=== PATIENT | female | born 1940 | race Caucasian/White ===

== ENCOUNTER 2021-03-22 15:53 | Emergency (ER) | payer MEDICARE ==
[~2021-03-22 15:53] MED LIST: ASPIR-TRIN325 MG PO; BENICAR HCT 201 EACH PO; CELEXA20 MG PO; ISOSORBIDE MON120 MG PO; LOSARTAN-HCTZ1 EACH PO; PLAVIX 75 MG TA75 MG PO; RANEXA500 MG PO; REMERON15 MG PO; SYNTHROID137 MCG PO; TOPROL XL 50 MG50 MG PO
== END 2021-03-22 16:50 | disposition left against medical advice (07) ==
LOC: ER1 15:53
DX: Z53.21 Procedure and treatment not carried out due to patient leaving prior to being seen by health care provider (principal)
CPT/HCPCS: 93005